=== PATIENT | male | born 1980 | race Caucasian/White ===

== ENCOUNTER 2019-07-01 12:30 | Inpatient (IN) | payer BC ==
[~2019-07-01] VITALS: Ht 180.3 cm; Wt 84.1 kg
[2019-07-01] VITALS (13 sets, daily range): BP systolic 129–160; BP diastolic 79–101
[2019-07-01 13:17] LABS: BASOPHILS % (AUTO) 0.2 % (0-1); EOSINOPHILS # (AUTO) 0.1 X10'3 (0-0.9); EOSINOPHILS % (AUTO) 1.1 % (0-6); HEMATOCRIT 45.9 % (42.0-52.0); HEMOGLOBIN 15.7 g/dl (14.0-17.9); LYMPHOCYTES % (AUTO) 13.6 % (21-51); MEAN CORPUSCULAR HEMOGLOBIN 30.7 PG (27.0-31.0); MEAN CORPUSCULAR HGB CONC 34.2 g/dL (33.0-36.5); MEAN CORPUSCULAR VOLUME 89.9 FL (78-98); MEAN PLATELET VOLUME 8.5 FL (7.4-10.4); MONOCYTES # (AUTO) 0.6 X10'3 (0-0.9); MONOCYTES % (AUTO) 8.4 % (2-12); NEUTROPHILS # (AUTO) 5.8 X10'3 (1.8-7.7); NEUTROPHILS % (AUTO) 76.7 % (42-75); PLATELET COUNT 203 X10'3 (140-440); WHITE BLOOD COUNT 7.5 X10'3 (4.5-11.0)
[2019-07-01 13:32] LABS: ALANINE AMINOTRANSFERASE 41 U/L (12-78); ALBUMIN 4.2 G/DL (3.4-5.0); ALKALINE PHOSPHATASE 59 IU/L (46-116); ANION GAP 8 (8-16); ASPARTATE AMINO TRANSFERASE 15 U/L (10-37); BILIRUBIN,TOTAL 1.1 MG/DL (0.1-1.0); BLOOD UREA NITROGEN 10 MG/DL (7-18); BUN/CREATININE RATIO 9.3 (5.4-32.0); CALCIUM 9.6 MG/DL (8.5-10.1); CHLORIDE 102 MMOL/L (99-107); CREATININE 1.08 MG/DL (0.60-1.10); GLUCOSE 107 MG/DL (70-104); POTASSIUM 4.1 MMOL/L (3.5-5.1); SODIUM 140 MMOL/L (135-145); TOTAL CARBON DIOXIDE 29.8 MMOL/L (24-32); TOTAL PROTEIN 8.3 G/DL (6.4-8.2); eGFR 77 ML/MIN
[2019-07-01] MEDS ORDERED: iohexol 300mg/ml 100ml inj. ONE (14:24)
[2019-07-01] MEDS ORDERED: piperacillin/tazo 3.375gm/50ml 50 ML IV ONE (15:20)
[2019-07-01 15:23] LABS: CLARITY,URINE CLEAR (Clear); COLOR,URINE YELLOW (Yellow); GLUCOSE, URINE NEGATIVE (Neg); KETONES,URINE NEGATIVE (Neg); LEUKOCYTE ESTERASE ,URINE NEGATIVE (Neg); NITRITES, URINE NEGATIVE (Neg); OCCULT BLOOD,URINE NEGATIVE (Neg); PH,URINE 7.5 (4.8-8.0); PROTEIN,URINE NEGATIVE (Neg); UROBILINOGEN,URINE 0.2 E.U/dL (0.2-1.0)
[2019-07-01 15:25] LABS: UA COLLECTION TYPE VOIDED
[2019-07-01] MEDS ORDERED: HYDROcodone/acetaminophen 5mg/325mg tablet PO PRN ×2 (15:30→18:40)
[2019-07-01] MEDS ORDERED: magnesium Cl slow-release 64mg tablet PO PRN (15:30)
[2019-07-01] MEDS ORDERED: magnesium 2GM in 50ml NS 50 ML IV PRN (15:30)
[2019-07-01] MEDS ORDERED: potassium CL 10mEq/100ml bag 100 ML IV PRN ×2 (15:30)
[2019-07-01] MEDS ORDERED: ondansetron/PF 4mg/2ml inj IV PRN ×2 (15:30→16:40)
[2019-07-01] MEDS ORDERED: mag hydrox/Alum hydrox/simeth 30ml oral suspension PO PRN (15:30)
[2019-07-01] MEDS ORDERED: magnesium hydroxide 30ml (MOM) UD suspension PO PRN (15:30)
[2019-07-01] MEDS ORDERED: potassium Cl 20 mEq SR tablet PO PRN ×2 (15:30)
[2019-07-01] MEDS ORDERED: magnesium 4gm in 100ml NS 100 ML IV PRN (15:30)
[2019-07-01] MEDS ORDERED: HYDROcodone/acetaminophen 10/325mg tab PO PRN ×2 (15:30→18:40)
[2019-07-01] MEDS ORDERED: acetaminophen 325mg tablet PO PRN ×2 (15:30)
[2019-07-01] MEDS ORDERED: NO HOME MEDS (15:30)
[2019-07-01] MEDS ORDERED: morphine 2 MG/ML inj. syringe IV PRN ×2 (15:30)
[2019-07-01] MEDS ORDERED: piperacillin/tazo 3.375gm/50ml 50 ML IV SCH (16:00)
--- NOTE | 2019-07-01 16:15 | NUR ---
report given to nurse sandy in or for pt surgery scheduled today.
[2019-07-01] MEDS: normal saline 1000ml 1,000 ML IV SCH (16:17)
[2019-07-01] MEDS ORDERED: BUPIVAcaine/PF 2.5 mg/ml (0.25%) 30ml vial ONE (16:34)
[2019-07-01] MEDS ORDERED: LIDOcaine 1% 30ml preserv. free vial ONE (16:34)
--- NOTE | 2019-07-01 16:35 | NUR ---
pt changed in gown girl friend at bedside ,pt iv fluid infusing as per md orders ,pt has no belonging with him handed over to girlfriend ,no jewelery on.
[2019-07-01] MEDS ORDERED: proCHLORperazine 10 MG/2 ml inj IV PRN (16:40)
[2019-07-01] MEDS ORDERED: morphine 4 MG/ML inj SYRINge IV PRN ×2 (16:40)
[2019-07-01] MEDS ORDERED: ringers solution, lacted 1,000 ML IV SCH (16:40)
[2019-07-01] MEDS ORDERED: meperidine/PF 25mg/ml syringe IV PRN ×3 (16:40)
[2019-07-01] MEDS ORDERED: fentaNYL/PF 50MCG/1 ML 2ML syringe ONE (17:11)
[2019-07-01] MEDS ORDERED: midazolam 2 mg/2 ml injection ONE (17:11)
[2019-07-01] MEDS ORDERED: rocuronium 10mg/ml inj IV ONE (17:13)
[2019-07-01] MEDS ORDERED: LIDOcaine 2% (20mg/ml) 5ml vial ONE (17:14)
[2019-07-01] MEDS ORDERED: propofol inj 20 ML IV ONE (17:14)
[2019-07-01] MEDS ORDERED: dexamethasone sod phosphate 10mg/ml inj ONE (17:40)
[2019-07-01] MEDS ORDERED: sevoflurane 250ml liquid IH ONE (17:40)
[2019-07-01] MEDS ORDERED: ondansetron/PF 4mg/2ml inj ONE (17:55)
[2019-07-01] MEDS ORDERED: ceFOXitin 2 GM ADDVANTGE BAG 50 ML IV ONE (17:59)
[2019-07-01] MEDS ORDERED: labetalol 20mg/4ml (5mg/ml) syringe IV ONE (18:13)
[2019-07-01] MEDS ORDERED: meperidine/PF 50mg/ml syringe ONE (18:13)
[2019-07-01] MEDS ORDERED: glycopyrrolate 0.2mg/ml inj ONE (18:30)
[2019-07-01] MEDS ORDERED: neostigmine methylsulfate 1 MG/ML 10ml vial ONE (18:30)
--- NOTE | 2019-07-01 18:45 | NUR ---
Received from OR via BED , accompanied by Anesthesiologist DR VALENTINO and report given by Anesthesiolgist. PATIENT A&OX4, DENIES PAIN, V/S WNL, NEUROVASCULAR CHECKS INTACT, 20G PIV RUE, SCD ON, BANDAIDS TO LAP SIGHTS OF ABDOMEN CDI.
--- NOTE | 2019-07-01 18:54 | NUR ---
Received report from recovery room. Patient doing well and will be back to floor shortly.
--- NOTE | 2019-07-01 19:25 | NUR ---
PATIENT A&OX4, DENIES PAIN, V/S WNL, NEUROVASCULAR CHECKS INTACT, 20G PIV RUE, SCD ON, BANDAIDS TO LAP SIGHTS OF ABDOMEN CDI. PATIENT TAKEN TO SURGICAL WITH ALL BELONGINGS AND HOOKED UP TO MONITORS IN ROOM AND REPORT GIVEN TO RN WHO HAS TAKEN OVER PATIENT CARE.
--- NOTE | 2019-07-01 19:30 | NUR ---
Patient arrived to floor on a gurney from recovery. Patient transferred himself to bed by sliding over. Denies any pain at this time. fluids hooked up and Post-op VS initiated. Patient has girlfriend at bedside.
[2019-07-02] VITALS: BP 141/84
[2019-07-02] MEDS: normal saline 1000ml 1,000 ML IV SCH ×2 (00:48→08:31)
[2019-07-02] MEDS: piperacillin/tazo 3.375gm/50ml 50 ML IV SCH ×2 (00:50→08:28)
[2019-07-02 04:00] VITALS: BP 132/83
[2019-07-02 06:20] LABS: ALBUMIN 3.4 G/DL (3.4-5.0); ANION GAP 9 (8-16); BASOPHILS % (AUTO) 0.1 % (0-1); BLOOD UREA NITROGEN 8 MG/DL (7-18); CALCIUM 8.4 MG/DL (8.5-10.1); CHLORIDE 106 MMOL/L (99-107); CREATININE 0.89 MG/DL (0.60-1.10); EOSINOPHILS % (AUTO) 0 % (0-6); GLUCOSE 124 MG/DL (70-104); HEMATOCRIT 41.3 % (42.0-52.0); HEMOGLOBIN 14.1 g/dl (14.0-17.9); LYMPHOCYTES # (AUTO) 0.6 X10'3 (1.1-4.8); LYMPHOCYTES % (AUTO) 11.1 % (21-51); MAGNESIUM 2.1 MG/DL (1.5-2.4); MEAN CORPUSCULAR HEMOGLOBIN 30.5 PG (27.0-31.0); MEAN CORPUSCULAR HGB CONC 34.2 g/dL (33.0-36.5); MEAN CORPUSCULAR VOLUME 89.2 FL (78-98); MEAN PLATELET VOLUME 8.9 FL (7.4-10.4); MONOCYTES # (AUTO) 0.4 X10'3 (0-0.9); MONOCYTES % (AUTO) 6.9 % (2-12); NEUTROPHILS # (AUTO) 4.7 X10'3 (1.8-7.7); NEUTROPHILS % (AUTO) 81.9 % (42-75); PLATELET COUNT 173 X10'3 (140-440); POTASSIUM 3.9 MMOL/L (3.5-5.1); RED BLOOD COUNT 4.63 X10'6 (4.70-6.10); RED CELL DISTRIBUTION WIDTH 12.7 % (11.5-14.5); SODIUM 140 MMOL/L (135-145); TOTAL CARBON DIOXIDE 24.8 MMOL/L (24-32); WHITE BLOOD COUNT 5.7 X10'3 (4.5-11.0); eGFR > 90 ML/MIN
--- NOTE | 2019-07-02 06:30 | NUR ---
Problems reprioritized. Patient report given, questions answered & plan of care reviewed with Jeramy Rosado RN.
--- NOTE | 2019-07-02 06:54 | NUR ---
Patient in room [facility]. I have received report from Na MURPHY and had the opportunity to ask questions and assume patient care.
[2019-07-02 07:00] VITALS: BP 135/77
[2019-07-02] MEDS ORDERED: K and/or MAG REPLACEMENT MC SCH (08:00)
--- NOTE | 2019-07-02 13:15 | NUR ---
Discharge instructions given to patient. Patient verbalized understanding of all instructions made. Peripheral IV catheter removed, tip intact. Instructed patient to ensure he has all his belongings with him before leaving. Patient's girlfriend at bedside during discharge process Addendum: 07/02/19 at 1319 by Charles Gonzalez RN Patient tolerated his regular food lunch prior to discharge
== END 2019-07-02 13:15 | disposition home or self-care (01) | DRG 343 ==
LOC: ER 12:31 → SUR 3N 19:40 → CMPBEDREQ 19:45
PROVIDERS: ADMIT Hospitalist; ATTEND Hospitalist
PROC: 0DTJ4ZZ Resection of Appendix, Percutaneous Endoscopic Approach (ICD-10-PCS; principal; 2019-07-01 17:40)
DX: K35.80 Unspecified acute appendicitis (principal); Z72.89 Other problems related to lifestyle
CPT/HCPCS: 96365; 96366; 99285; Z7506; Z7508; 36415; 74177; 80048; 80053; 81003; 83735; 85025; 85610; 87081; A4215; A4618; A7000; G0378; J0694; J1100; J2001; J2175; J2250; J2405; J2543; J2704; J2710; J3010; J3490; J7030; J7120; Q9967